=== PATIENT | female | born 1960 | race Caucasian/White ===

== ENCOUNTER 2018-06-17 13:09 | Emergency (ER) | payer BC ==
--- NOTE | 2018-06-17 13:26 | EDM.PDOC ---
ED HPI GENERAL MEDICAL PROBLEM - General Stated Complaint: GI BLEED - Related Data Allergies Allergy/AdvReac Type Severity Reaction Status Date / Time No Known Allergies Allergy Verified 01/27/16 08:37 Home Meds: Home Meds Escitalopram Oxalate 20 mg PO DAILY 11/17/15 [History] Hydrochlorothiazide 25 mg PO DAILY 11/17/15 [History] Levothyroxine [Synthroid] 50 mcg PO ACBREAKFAST 11/17/15 [History] Simvastatin 20 mg PO BEDTIME 11/17/15 [History] Valsartan [Diovan] 160 mg PO DAILY 11/17/15 [History] sitaGLIPtin Phos/Metformin HCl [Janumet 50-1,000 MG] 50 - 1,000 mg PO BID [History] Past Medical History Psychiatric History: Reports: Depression Endocrine/Metabolic History: Reports: Diabetes, Type II, Hypothyroidism Hematologic History: Reports: Anemia, Iron Deficiency Other Hematologic History: hx of anemia low iron cause unknown at this time - Past Surgical History Female Surgical History: Reports: Section Social & Family History - Family History Family Medical History: Noncontributory Departure - Discharge Information Referrals: PCP,None [Primary Care Provider] -
[2018-06-17] MEDS: Sodium Chloride 0.9% 1,000 ML IV SCH (13:30)
[2018-06-17] MEDS: Sodium Chloride 0.9% 500 ML IV ONE (13:30)
[2018-06-17] MEDS ORDERED: Pantoprazole 40 MG Vial ONE (14:04)
[2018-06-17 14:17] VITALS: BP 152/72
[2018-06-17] MEDS: Pantoprazole 40 MG Vial IVPUSH ONE (17:29)
== END 2018-06-17 15:00 ==
LOC: LB.ED 13:09
DX: Z53.21 Procedure and treatment not carried out due to patient leaving prior to being seen by health care provider (principal)
CPT/HCPCS: 36415; 80053; 85025; 85610; 96361; 96374; 99285-25; A0425; A0429; C9113; J7030; J7040

== ENCOUNTER 2024-04-04 18:03 | Emergency (ER) | payer BC ==
[2024-04-04] MEDS ORDERED: Sodium Chloride 0.9% 10 ML Syringe FLUSH PRN (18:19)
[2024-04-04] MEDS: Ondansetron 4 MG/2 ML SDV IVPUSH ONE (18:27)
[2024-04-04] MEDS: Ketorolac 30 MG/ML SDV IVPUSH ONE (18:30)
[2024-04-04] MEDS: HYDROmorphone 2 MG/ML Syringe IVPUSH ONE (18:33)
[2024-04-04 21:32] VITALS: PULSE 78
[2024-04-04] MEDS ORDERED: Ondansetron 4 MG Tab.DIS ONE (22:00)
[2024-04-04] MEDS ORDERED: Acetaminophen/oxyCODONE 325-5 MG Tab ONE ×2 (22:00)
[2024-04-04 22:16] VITALS: BP 109/59
== END 2024-04-04 22:05 | disposition home or self-care (01) ==
LOC: LB.ED 18:03
DX: S42.292A Other displaced fracture of upper end of left humerus, initial encounter for closed fracture (principal); E11.9 Type 2 diabetes mellitus without complications; E03.9 Hypothyroidism, unspecified; Z87.891 Personal history of nicotine dependence; Z79.899 Other long term (current) drug therapy; Z79.4 Long term (current) use of insulin; Z79.890 Hormone replacement therapy; Z91.018 Allergy to other foods
CPT/HCPCS: 29105; 73030; 73060; 73200; 96374; 96375; 96376; 99284; 99285; A9270; J1171; J1885; J2405; Q0162

== ENCOUNTER 2024-08-22 14:03 | Emergency (ER) | payer BC ==
[2024-08-22 15:32] VITALS: BP 129/62
[2024-08-22 17:03] VITALS: PULSE 68
== END 2024-08-22 14:30 | disposition home or self-care (01) ==
LOC: LB.ED 14:03
DX: T81.89XA Other complications of procedures, not elsewhere classified, initial encounter (principal); I10 Essential (primary) hypertension; E11.9 Type 2 diabetes mellitus without complications; E03.9 Hypothyroidism, unspecified; Z91.018 Allergy to other foods; Z79.890 Hormone replacement therapy; Z79.899 Other long term (current) drug therapy; Z79.4 Long term (current) use of insulin; Z79.84 Long term (current) use of oral hypoglycemic drugs
CPT/HCPCS: 12020; 99283

== ENCOUNTER 2024-12-04 17:20 | Emergency (ER) | payer MEDICARE, BC ==
[2024-12-04 18:28] VITALS: BP 105/51; PULSE 80
== END 2024-12-04 18:35 | disposition home or self-care (01) ==
LOC: LB.ED 17:20
DX: K74.60 Unspecified cirrhosis of liver (principal); I12.9 Hypertensive chronic kidney disease with stage 1 through stage 4 chronic kidney disease, or unspecified chronic kidney disease; N18.2 Chronic kidney disease, stage 2 (mild); E11.22 Type 2 diabetes mellitus with diabetic chronic kidney disease; E03.9 Hypothyroidism, unspecified; Z91.018 Allergy to other foods; Z79.4 Long term (current) use of insulin; Z79.890 Hormone replacement therapy; Z79.899 Other long term (current) drug therapy
CPT/HCPCS: 99281; 99284